=== PATIENT | female | born 1975 | race Caucasian/White ===

== ENCOUNTER 2017-03-23 15:49 | Emergency (ER) | END 2017-03-23 17:05 | disposition home or self-care (01) ==

== ENCOUNTER 2018-08-11 17:39 | Emergency (ER) | payer BC ==
[~2018-08-11] VITALS: Ht 154.9 cm; Wt 103.2 kg
[~2018-08-11 17:39] MED LIST: ACET500C5 PO; ALBU90AE INHALATION; AMLO-147 PO; AZIT250T PO; GUAI-47 PO; GUAI-637 PO; IBUP-1542 PO; MED4DP PO
[2018-08-11 17:45] VITALS: Ht 154.9 cm; Wt 103.2 kg
[2018-08-11] MEDS ORDERED: AMLO-147 PO (17:59)
[2018-08-11] MEDS ORDERED: LOSA1TAB25 PO (17:59)
--- NOTE | 2018-08-11 18:06 | ERD ---
ER Documentation Chief Complaint Chief Complaint medication refill HPI 42-year-old female history of hypertension who takes 2 different medications who ran out of her medications today. She took the morning dose. The patient states that she regularly runs in the 190 range systolic. The patient denies any headache chest pain or shortness of breath. She was noted to have significantly elevated blood pressure in triage. She notes significant social stressors. She states that her blood pressure usually goes up when she is stressed. Again she denies any headache chest pain shortness of breath. No numbness or tingling or slurred speech. ROS All systems reviewed and are negative except as per history of present illness. Medications Home Meds Active Scripts Amlodipine Besylate* (Amlodipine Besylate*) 10 Mg Tablet, 10 MG PO DAILY, #30 TAB Prov:AVANI GUERRERO MD 08/11/18 Losartan-Hydrochlorothiazide (Losartan-HCTZ) 100-25 Mg Tab, 1 TAB PO DAILY for 30 Days, TAB Prov:AVANI GUERRERO MD 08/11/18 Amlodipine Besylate* (Amlodipine Besylate*) 10 Mg Tablet, 10 MG PO DAILY, #30 TAB Prov:KRISTEN ENGLE 03/23/17 Guaifenesin* (Robitussin*) 100 Mg/5 Ml Syrup, 200 MG PO Q6H PRN for COUGH for 3 Days, ML Prov:KRISTEN ENGLE 03/23/17 Methylprednisolone* (Medrol* DOSE PACK) 4 Mg/Dose-Pack Tab.ds.pk, 4 MG PO . DIRECTED for 6 Days, PACKET Prov:KRISTEN ENGLE 03/23/17 Azithromycin* (Zithromax*) 250 Mg Tablet, 250 MG PO .ZPACK DIRECTED, #6 TAB TAKE 500 MG (2 TABS) THE FIRST DAY THEN 250 MG (1 TAB) DAYS 2-5 Prov:KRISTEN ENGLE 03/23/17 Guaifenesin-Dextromethorphan* (Mucinex* DM) 600-30 Mg Tabsr, 1 TAB PO Q12 for 10 Days, TAB Prov:BEANBALDOMERO LATHAM I. FINISHER COLD ROLLING 05/01/15 Ibuprofen* (Ibuprofen*) 600 Mg Tablet, 600 MG PO Q6 for 10 Days, TAB Prov:BEANBALDOMERO LATHAM I. FINISHER COLD ROLLING 3/1/16 Acetaminophen* (Tylophen*) 500 Mg Capsule, 500 MG PO Q6H PRN for FEVER for 7 Days, TAB Prov:BEANBALDOMERO I. FINISHER COLD ROLLING 05/01/15 Albuterol Sulfate (Proair Respiclick) 90 Mcg Aer.pow.ba, 1 PUFF INHALATION Q4 PRN for WHEEZING, #1 BOTTLE Prov:BALDOMERO BEAN I. FINISHER COLD ROLLING 05/01/15 Allergies Allergies: Coded Allergies: No Known Drug Allergy (Verified Allergy, Unknown, 05/01/15) PMhx/Soc History of Surgery: Yes () Hx Respiratory Disorders: Yes (ASTHMA) Hx Cardiac Disorders: Yes (HTN) Hx Alcohol Use: Yes (occ) Hx Substance Use: No Hx Tobacco Use: No FmHx Family History: No diabetes Physical Exam Vitals Vital Signs Date Temp Pulse Resp B/P (MAP) Pulse Ox O2 O2 Flow FiO2 Time Delivery Rate 08/11/18 87 18 238/114 97 Room Air 18:11 (155) 08/11/18 98.2 92 18 242/118 94 17:45 (159) Physical Exam General: Well developed, well nourished, no acute distress Head: Normocephalic, atraumatic. Eyes: EOM intact ENT: Moist mucous membranes Neck: Full ROM Respiratory: No respiratory distress Cardiovascular: Well perfused distally Abdominal: Nondistended : Deferred MSK: No edema, no unilateral swelling, 5/5 strength Neurologic: Alert and oriented, moving all extremities, normal speech, steady gait Skin: No rash Psych: Normal mood Procedures/MDM Patient presents with elevated blood pressure for medication refill. The patient is asymptomatic. Patient normally runs quite elevated in the 190 range systolic. The patient was informed that this is too high on a regular basis and needs to talk to her primary care physician for improved hypertensive control. Patient exhibits no signs or symptoms concerning for endorgan dysfunction. Patient's number is significantly elevated but at this time I believe the risks of rapidly lowering the blood pressure outweigh any benefits. Given her baseline is significantly elevated we run the risk of causing more harm than good at this time. Patient was given reassurance. She had a regular dosing of blood pressure medication. I will provide medication refills for the patient. Return precautions were discussed and understood stood including signs of stroke or heart attack. Given that the repeat blood pressure was still elevated we did discuss ob servation or possibly dosing medication but I discussed the risk benefits alternatives. She agrees that watchful waiting is appropriate. I discussed keeping a blood pressure log at home. The patient does not have an identifiable emergent medical condition that warrants inpatient hospitalization at this time. The patient is deemed safe for discharge with outpatient follow-up. We discussed follow up with the patient's primary care doctor within 24 to 48 hours as needed. We also discussed return to the emergency room for worsening symptoms or worsening condition. Outpatient referral: None required Discharge Medications: Losartan hydrochlorothiazide Amlodipine Departure Diagnosis: Primary Impression: Asymptomatic hypertensive urgency Additional Impression: Encounter for medication refill Condition: Stable Patient Instructions: Hypertension, Established, Out Of Control Referrals: [facility] YOU HAVE RECEIVED A MEDICAL SCREENING EXAM AND THE RESULTS INDICATE THAT YOU DO NOT HAVE A CONDITION THAT REQUIRES URGENT TREATMENT IN THE EMERGENCY DEPARTMENT. FURTHER EVALUATION AND TREATMENT OF YOUR CONDITION CAN WAIT UNTIL YOU ARE SEEN IN YOUR DOCTORS OFFICE WITHIN THE NEXT 1-2 DAYS. IT IS YOUR RESPONSIBILITY TO MAKE AN APPOINTMENT FOR FOLOW-UP CARE. IF YOU HAVE A PRIMARY DOCTOR --you should call your primary doctor and schedule an appointment IF YOU DO NOT HAVE A PRIMARY DOCTOR YOU CAN CALL OUR PHYSICIAN REFERRAL HOTLINE AT IF YOU CAN NOT AFFORD TO SEE A PHYSICIAN YOU CAN CHOSE FROM THE FOLLOWING [facility] [address] [facility]. [facility] [address] [facility]. [facility] [address] [facility] [facility] [address] [facility]. [facility] [address] [facility]. [facility]. [address] [facility]. [facility] YOU HAVE RECEIVED A MEDICAL SCREENING EXAM AND THE RESULTS INDICATE THAT YOU DO NOT HAVE A CONDITION THAT REQUIRES URGENT TREATMENT IN THE EMERGENCY DEPARTMENT. FURTHER EVALUATION AND TREATMENT OF YOUR CONDITION CAN WAIT UNTIL YOU ARE SEEN IN YOUR DOCTORS OFFICE WITHIN THE NEXT 1-2 DAYS. IT IS YOUR RESPONSIBILITY TO MAKE AN APPOINTMENT FOR FOLOW-UP CARE. IF YOU HAVE A PRIMARY DOCTOR --you should call your primary doctor and schedule and appointment IF YOU DO NOT HAVE A PRIMARY DOCTOR YOU CAN CALL OUR PHYSICIAN REFERRAL HOTLINE AT . IF YOU CAN NOT AFFORD TO SEE A PHYSICIAN YOU CAN CHOSE FROM THE FOLLOWING [facility]: [facility] [address] [place] [address] [facility] [address] [place] [address] [facility] [address] [place] [address] Additional Instructions: Call your primary care doctor TOMORROW for an appointment during the next 1 WEEK.Tell the soil biology teacher that you were referred from this facility.See the doctor sooner or return here if your condition worsens before your appointment time. Please return to the emergency room if you have any severe headache, weakness, chest pain. AVANI GUERRERO MD Aug 11, 2018 18:06
[2018-08-11 18:11] VITALS: BP 238/114; PULSE 87; RESP 18
== END 2018-08-11 18:15 | disposition home or self-care (01) ==
LOC: E/R 17:39
DX: I16.0 Hypertensive urgency (principal); J45.909 Unspecified asthma, uncomplicated
CPT/HCPCS: 99283

== ENCOUNTER 2018-10-07 18:16 | Emergency (ER) | payer BC ==
[~2018-10-07] VITALS: Ht 156.2 cm; Wt 101.7 kg
[~2018-10-07 18:16] MED LIST changes: +LOSA1TAB25 PO
[2018-10-07 18:42] VITALS: Ht 156.2 cm; Wt 101.7 kg
[2018-10-07] MEDS ORDERED: NICARDipine HCL 30 MG CAPSULE PO ONE (19:00)
[2018-10-07 19:26] VITALS: BP 171/85; PULSE 85; RESP 18
--- NOTE | 2018-10-07 22:17 | ERD ---
ER Documentation Chief Complaint Chief Complaint med refill x Amlodipine&Losartan HPI Patient is a 42-year-old female, past medical history of hypertension, presents the ER for concerns of medication refill. She states she ran out of her medication 1 week ago. Patient reports taking amlodipine 10 mg daily as well as losartan/hydrochlorothiazide 100-25 mg daily. Patient states she has been monitoring her blood pressure and it has been improved however she believes it increased given that she is not taking her medication in 1 week. Patient denies any headache, chest pain, shortness of breath, nausea, vomiting, unilateral weakness, slurred speech, difficulty ambulating, numbness/tingling, or loss of consciousness. ROS All systems reviewed and are negative except as per history of present illness. Medications Home Meds Active Scripts Amlodipine Besylate* (Amlodipine Besylate*) 10 Mg Tablet, 10 MG PO DAILY, #30 TAB Prov:MIKHAIL PARKER PA-C 10/07/18 Losartan-Hydrochlorothiazide (Losartan-HCTZ) 100-25 Mg Tab, 1 TAB PO DAILY, #30 TAB Prov:MIKHAIL PARKER PA-C 10/07/18 Amlodipine Besylate* (Amlodipine Besylate*) 10 Mg Tablet, 10 MG PO DAILY, #30 TAB Prov:AVANI GUERRERO MD 08/11/18 Losartan-Hydrochlorothiazide (Losartan-HCTZ) 100-25 Mg Tab, 1 TAB PO DAILY for 30 Days, TAB Prov:AVANI GUERRERO MD 08/11/18 Amlodipine Besylate* (Amlodipine Besylate*) 10 Mg Tablet, 10 MG PO DAILY, #30 TAB Prov:KRISTEN ENGLE 03/23/17 Guaifenesin* (Robitussin*) 100 Mg/5 Ml Syrup, 200 MG PO Q6H PRN for COUGH for 3 Days, ML Prov:KRISTEN ENGLE 03/23/17 Methylprednisolone* (Medrol* DOSE PACK) 4 Mg/Dose-Pack Tab.ds.pk, 4 MG PO . DIRECTED for 6 Days, PACKET Prov:KRISTEN ENGLE 03/23/17 Azithromycin* (Zithromax*) 250 Mg Tablet, 250 MG PO .ZPACK DIRECTED, #6 TAB TAKE 500 MG (2 TABS) THE FIRST DAY THEN 250 MG (1 TAB) DAYS 2-5 Prov:KRISTEN ENGLE Cole 03/23/17 Guaifenesin-Dextromethorphan* (Mucinex* DM) 600-30 Mg Tabsr, 1 TAB PO Q12 for 10 Days, TAB Prov:BEAN,BALDOMERO I. INDUSTRIAL ORGANIZATION MANAGER 05/01/15 Ibuprofen* (Ibuprofen*) 600 Mg Tablet, 600 MG PO Q6 for 10 Days, TAB Prov:BEAN,BALDOMERO I. INDUSTRIAL ORGANIZATION MANAGER 05/01/15 Acetaminophen* (Tylophen*) 500 Mg Capsule, 500 MG PO Q6H PRN for FEVER for 7 Days, TAB Prov:BEAN,BALDOMERO I. INDUSTRIAL ORGANIZATION MANAGER 05/01/15 Albuterol Sulfate (Proair Respiclick) 90 Mcg Aer.pow.ba, 1 PUFF INHALATION Q4 PRN for WHEEZING, #1 BOTTLE Prov:BEANBALDOMERO I. INDUSTRIAL ORGANIZATION MANAGER 05/01/15 Allergies Allergies: Coded Allergies: No Known Drug Allergy (Verified Allergy, Unknown, 05/01/15) PMhx/Soc History of Surgery: Yes () Anesthesia Reaction: No Hx Neurological Disorder: No Hx Respiratory Disorders: Yes (ASTHMA) Hx Cardiac Disorders: Yes (HTN) Hx Psychiatric Problems: No Hx Alcohol Use: Yes (occ) Hx Substance Use: No Hx Tobacco Use: No Smoking Status: Never smoker FmHx Family History: No diabetes Physical Exam Vitals Vital Signs Date Temp Pulse Resp B/P (MAP) Pulse Ox O2 O2 Flow FiO2 Time Delivery Rate 10/07/18 98.5 85 18 171/85 97 Room Air 19:26 (113) 10/07/18 99.1 103 20 255/126 97 18:42 (169) Physical Exam GENERAL: Well-developed, well-nourished female. Appears in no acute distress. Speaking in full sentences. HEAD: Normocephalic, atraumatic. EYES: Pupils are equally reactive bilaterally. EOMs grossly intact. No conjunctival erythema. ENT: Moist mucous membranes. No uvula deviation. No kissing tonsils. NECK: Supple. No meningismus. Normal range of motion of the neck. LUNG: Clear to auscultation bilaterally. No rhonchi, wheezing, rales or coarse breath sounds. HEART: Regular rate and rhythm. No murmurs, rubs or gallops. EXTREMITIES: Equal pulses bilaterally. No peripheral clubbing, cyanosis or edema. No unilateral leg swelling. NEUROLOGIC: Alert and oriented. Cranial nerves II through XII intact. Moving all four extremities without any difficulty. Normal speech. Steady gait. No facial asymmetry. Equal cpr instructor strength bilaterally. No pronator drift. SKIN: Normal color. Warm and dry. No rashes or lesions. Results 24 hrs Current Medications Medications Dose Sig/Quentin Start Time Status Last (Trade) Ordered Route PRN Stop Time Admin Dose Reason Admin Nicardipine 30 mg ONCE ONCE 10/07/18 DC 10/07/18 HCl PO 19:00 10/07/18 19:10 (Cardene) 19:01 Procedures/MDM MEDICAL DECISION MAKING: Patient is a 42-year-old female, past medical history of hypertension, who presents to the ER for concerns of medication refill of her hypertension medications as she ran out. Patient's blood pressure noted to be elevated at triage at 255/126. Patient denies any symptoms at this time. Case was discussed with supervising physician Dr. Mosher who advised me to give the patient Cardene 30 mg p.o. prior to discharge. Patient's blood pressure remained elevated however was noted to be downtrending prior to discharge. Patient had no signs or symptoms concerning for endorgan dysfunction. I do not feel the patient requires admission at this time. Patient advised to follow-up with primary care physician for closer monitoring and management of her hypertension. Patient explained if her blood pressure remains high she may need additional medications. Patient will be given a refill of her medications today. Return precautions were discussed and patient was given instructions on stroke signs as well as signs of a heart attack. DISCHARGE: At this time, patient is stable for discharge and outpatient management. I have instructed the patient to follow-up with his/her primary care physician in 1-2 days. I have discussed with the patient the possibility of needing to see a specialist for further workup and imaging studies if symptoms persist. I have instructed the patient to promptly return to the ER for any new or worsening symptoms including increased pain, fever, nausea, vomiting, weakness or LOC. The patient and/or family expressed understanding of and agreement with this plan. All questions were answered. Home care instructions were provided. Patients blood pressure was elevated (>120/80) but appears stable without evidence of hypertensive emergency, hypertensive urgency or end-organ failure. I had discussion with the patient about the risks of hypertension. I have advised the patient to follow up with his/her primary care physician for outpatient monitoring and treatment for hypertension in 2-3 days. I have instructed the patient to return to the ER for any new or worsening symptoms including chest pain, shortness of breath, headache, blurred vision, confusion, nausea, vomiting or LOC. Departure Diagnosis: Primary Impression: Asymptomatic hypertensive urgency Additional Impression: Encounter for medication refill Condition: Fair Patient Instructions: High Blood Pressure (Hypertension) Referrals: [facility] YOU HAVE RECEIVED A MEDICAL SCREENING EXAM AND THE RESULTS INDICATE THAT YOU DO NOT HAVE A CONDITION THAT REQUIRES URGENT TREATMENT IN THE EMERGENCY DEPARTMENT. FURTHER EVALUATION AND TREATMENT OF YOUR CONDITION CAN WAIT UNTIL YOU ARE SEEN IN YOUR DOCTORS OFFICE WITHIN THE NEXT 1-2 DAYS. IT IS YOUR RESPONSIBILITY TO MAKE AN APPOINTMENT FOR FOLOW-UP CARE. IF YOU HAVE A PRIMARY DOCTOR --you should call your primary doctor and schedule an appointment IF YOU DO NOT HAVE A PRIMARY DOCTOR YOU CAN CALL OUR PHYSICIAN REFERRAL HOTLINE AT IF YOU CAN NOT AFFORD TO SEE A PHYSICIAN YOU CAN CHOSE FROM THE FOLLOWING [facility] [address] [facility] [address] [facility] [facility] [address] [facility] [facility] [address] [facility] [address] [facility]. [facility]. [address] [facility]. [facility] YOU HAVE RECEIVED A MEDICAL SCREENING EXAM AND THE RESULTS INDICATE THAT YOU DO NOT HAVE A CONDITION THAT REQUIRES URGENT TREATMENT IN THE EMERGENCY DEPARTMENT. FURTHER EVALUATION AND TREATMENT OF YOUR CONDITION CAN WAIT UNTIL YOU ARE SEEN IN YOUR DOCTORS OFFICE WITHIN THE NEXT 1-2 DAYS. IT IS YOUR RESPONSIBILITY TO MA KE AN APPOINTMENT FOR FOLOW-UP CARE. IF YOU HAVE A PRIMARY DOCTOR --you should call your primary doctor and schedule and appointment IF YOU DO NOT HAVE A PRIMARY DOCTOR YOU CAN CALL OUR PHYSICIAN REFERRAL HOTLINE AT . IF YOU CAN NOT AFFORD TO SEE A PHYSICIAN YOU CAN CHOSE FROM THE FOLLOWING [facility]: [facility] [address] [place] [address] [facility] [address] [place] [address] [facility] + [facility] [address] [place] [address] Additional Instructions: Call your primary care doctor TOMORROW for an appointment during the next 1-2 days.See the doctor sooner or return here if your condition worsens before your appointment time. MIKHAIL PARKER PA-C Oct 07, 2018 22:17
== END 2018-10-07 19:33 | disposition home or self-care (01) ==
LOC: FTE 18:16
DX: Z76.0 Encounter for issue of repeat prescription (principal); I16.0 Hypertensive urgency; J45.909 Unspecified asthma, uncomplicated; I10 Essential (primary) hypertension
CPT/HCPCS: 99283